=== PATIENT | female | born 1985 ===

== ENCOUNTER 2016-10-06 12:44 | Emergency (ER) | payer MEDICAID ==
[2016-10-06 12:44] VITALS: BMI 30.4
[2016-10-06 14:07] LABS: BASO # 0.1 K/uL (0.0-0.2); BASO % 0.7 % (0.0-2.0); EOS # 0.2 K/uL (0.0-0.7); EOS % 1.7 % (0.0-4.0); LYMPH # 3.8 K/uL (1.0-4.3); LYMPH % 30.8 % (20.0-40.0); MEAN CORPUSCULAR HGB CONC 33.3 g/dL (33.0-37.0); MEAN PLATELET VOLUME 8.6 fl (7.2-11.7); MONO % 7.8 % (0.0-10.0); NEUT # 7.3 K/uL (1.8-7.0); RED CELL DISTRIBUTION WIDTH 15.3 % (11.5-14.5); WHITE BLOOD COUNT 12.4 K/uL (4.8-10.8)
--- NOTE | 2016-10-06 14:08 | ED PDOC ---
HPI: Abdomen Time Seen by Provider: 10/06/16 12:57 Chief Complaint (Nursing): Abdominal Pain Chief Complaint (Provider): Abdominal Pain History Per: Patient History/Exam Limitations: no limitations Onset/Duration Of Symptoms: Days (x3) Additional Complaint(s): Ruthie Oscar is a 31 year old female who presents to the emergency department with a complaint of sharp, lower abdominal pain ongoing for 3 days which has become progressively worse, worse with movement. Denied any fever, chills, nausea, vomiting, constipation, diarrhea, vaginal bleeding, dysuria, hematuria, or taking pain medication for relief. PMD: none provided Abnormal Vaginal Bleeding: No Past Medical History Reviewed: Historical Data, Nursing Documentation, Vital Signs Vital Signs: Last Vital Signs Temp 98.4 F 10/06/16 16:29 Pulse 82 10/06/16 16:29 Resp 20 10/06/16 16:29 BP 120/70 10/06/16 16:29 Pulse Ox 98 10/06/16 16:29 - Medical History PMH: Migraine - Surgical History Surgical History: (x3) - Family History Family History: States: Unknown Family Hx - Social History Current smoker - smoking cessation education provided: No Alcohol: None Drugs: Denies - Immunization History Hx Tetanus Toxoid Vaccination: Yes Hx Influenza Vaccination: Yes Hx Pneumococcal Vaccination: Yes - Home Medications Home Medications: Ambulatory Orders Medication Instructions Recorded Meclizine [Antivert] 25 mg PO Q6 #30 tab 08/25/15 Naproxen [Naprosyn] 500 mg PO BID PRN #15 tablet 10/06/16 - Allergies Allergies/Adverse Reactions: Allergies Allergy/AdvReac Type Severity Reaction Status Date / Time No Known Allergies Allergy Verified 08/25/15 19:00 Review of Systems ROS Statement: Except As Marked, All Systems Reviewed And Found Negative Constitutional: Negative for: Fever, Chills Gastrointestinal: Positive for: Abdominal Pain (lower region; sharp and progressively getting worse). Negative for: Nausea, Vomiting, Diarrhea, Constipation Genitourinary Female: Negative for: Dysuria, Hematuria, Vaginal Bleeding Physical Exam - Reviewed Nursing Documentation Reviewed: Yes Vital Signs Reviewed: Yes - Physical Exam Appears: Positive for: Well, Non-toxic, No Acute Distress Head Exam: Positive for: ATRAUMATIC, NORMAL INSPECTION, NORMOCEPHALIC Cardiovascular/Chest: Positive for: Regular Rate, Rhythm Respiratory: Positive for: Normal Breath Sounds. Negative for: Respiratory Distress Gastrointestinal/Abdominal: Positive for: Bowel Sounds, Soft, Tenderness (left suprapubic). Negative for: Normal Exam, Guarding, Rebound Extremity: Positive for: Normal ROM Neurologic/Psych: Positive for: Alert, application trainer II-XII, Oriented - Laboratory Results Result Diagrams: 10/06/16 14:03 10/06/16 14:03 - ECG O2 Sat by Pulse Oximetry: 99 (RA) Pulse Ox Interpretation: Normal Medical Decision Making Medical Decision Making: Initial Impression: Abdominal pain Initial Plan: * Labs * Urine dipstick * Urine * Morphine 2mg * Urinalysis * US pelvis Time: 1545 --US ABD FINDINGS: UTERUS: Uterus is anteverted measuring approximately 10.6 x 4.0 x 4.7 cm. . No obvious myometrial masses or collections. . ENDOMETRIUM: Endometrial stripe measures approximately 9 mm in diameter. . CERVIX: Few small cervical nabothian cyst present RIGHT OVARY: Measures approximately 2.3 x 1.7 x 1.9 cm. No solid mass. Normal flow. LEFT OVARY: Measures approximately 4.1 x 2 point by 4.4 cm. No solid mass. Normal flow. FREE FLUID: No significant free fluid noted. OTHER FINDINGS: None. IMPRESSION: Unremarkable transabdominal pelvic ultrasound as above. ~ Scribe Attestation: Documented by Leonila Ballard, acting as a scribe for Jasmin Vicente MD. Provider Scribe Attestation: All medical record entries made by the Scribe were at my direction and personally dictated by me. I have reviewed the chart and agree that the record accurately reflects my personal performance of the history, physical exam, medical decision making, and the department course for this patient. I have also personally directed, reviewed, and agree with the discharge instructions and disposition. Disposition - Clinical Impression Clinical Impression: Left groin pain - Disposition Referrals: [facility] [place] [Outside] [facility] [place] [Outside] Disposition: Routine/Home Disposition Time: 16:09 Condition: STABLE Prescriptions: Naproxen [Naprosyn] 500 mg PO BID PRN #15 tablet PRN Reason: Pain, Moderate (4-7) Instructions: Groin Pain (ED) Forms: [employer] ([place]) Print Language: CAMBODIAN
[2016-10-06] MEDS ORDERED: Sodium Chloride 0.9% 1,000 ML IV STA (14:12)
[2016-10-06 14:17] LABS: ALB/GLOB RATIO 1.3 (1.0-2.1); ALKALINE PHOSPHATASE 90 U/L (38-126); ALT/SGPT 32 U/L (9-52); AST/SGOT 20 U/L (14-36); BILIRUBIN,TOTAL 0.5 mg/dl (0.2-1.3); BLOOD UREA NITROGEN 9 mg/dl (7-17); CALCIUM 9.5 mg/dL (8.4-10.2); CARBON DIOXIDE 25 mmol/L (22-30); CHLORIDE 104 mmol/L (98-107); GFR AFRICAN-AMERICAN > 60; GLUCOSE,RANDOM 93 mg/dL (65-105); POTASSIUM 4.4 MMOL/L (3.6-5.0); SODIUM 138 mmol/l (132-148); TOTAL PROTEIN 7.9 G/DL (6.3-8.2)
[2016-10-06 14:23] LABS: RBC URINE 28 /hpf (0-3); URINE BACTERIA RARE (<OCC); URINE BILIRUBIN NEGATIVE (NEGATIVE); URINE BLOOD SMALL (NEGATIVE); URINE CALCIUM OXALATE CRYSTALS OCC /hpf (<OCC); URINE COLOR YELLOW (YELLOW); URINE GLUCOSE (UA) NEG (Normal); URINE KETONE NEGATIVE (NEGATIVE); URINE LEUKOCYTE ESTERASE NEG Leu/uL (Negative); URINE PROTEIN 30 mg/dL (NEGATIVE); URINE UROBILINOGEN 0.2-1.0 mg/dL (0.2-1.0); WBC URINE 2 /hpf (0-5)
--- NOTE | 2016-10-06 15:47 | US ---
HISTORY: Left-sided suprapubic pain. COMPARISON: None available. TECHNIQUE: Limited transabdominal sonographic evaluation of pelvis performed FINDINGS: UTERUS: Uterus is anteverted measuring approximately 10.6 x 4.0 x 4.7 cm. . No obvious myometrial masses or collections. . ENDOMETRIUM: Endometrial stripe measures approximately 9 mm in diameter. . CERVIX: Few small cervical nabothian cyst present RIGHT OVARY: Measures approximately 2.3 x 1.7 x 1.9 cm. No solid mass. Normal flow. LEFT OVARY: Measures approximately 4.1 x 2 point by 4.4 cm. No solid mass. Normal flow. FREE FLUID: No significant free fluid noted. OTHER FINDINGS: None. IMPRESSION: Unremarkable transabdominal pelvic ultrasound as above.
[2016-10-06 16:31] VITALS: BP 120/70; PULSE 82; RESP 20; TEMP 98.4
[2016-10-06 18:51] VITALS: O2SAT 99
== END 2016-10-06 16:31 | disposition home or self-care (01) ==
LOC: H.ER 12:44
DX: R10.30 Lower abdominal pain, unspecified (principal)
CPT/HCPCS: 76856; 80053; 81003; 85025; 96360; 99283; J2270; J7040

== ENCOUNTER 2016-12-05 14:51 | Emergency (ER) | payer MEDICAID, OTHER ==
[2016-12-05 14:51] VITALS: BMI 30.4
[2016-12-05 15:00] VITALS: BP 147/77; PULSE 89; RESP 16; TEMP 97.3; O2SAT 99
--- NOTE | 2016-12-05 15:37 | ED PDOC ---
HPI: General Adult Time Seen by Provider: 12/05/16 15:05 Chief Complaint (Nursing): Dizziness/Lightheaded Chief Complaint (Provider): Dizziness/Lightheaded History Per: Patient History/Exam Limitations: no limitations Onset/Duration Of Symptoms: Days (x5 days) Current Symptoms Are (Timing): Still Present Additional Complaint(s): 31 y/o female presents to the emergency department with dizziness and lightheadedness, feeling like she was going to pass out or fall down x5 days that worsened over the last 2 days. Associated with a mild headache, nausea, excessive thirst, and frequency in urination. Reports she used a persons glucose meter that showed 205. Denies history of diabetes, excessive hunger, and vomiting. Also reporting intermittent LEFT hand parasthesias and pain radiating near thumb -side of wrist down to fingers and up towards forearm. Also for about a week, but had in the past in milder intensity. Using soft wrist wrap for support with minimal relief. PMD: Dr. Bethany Aguilar Past Medical History Reviewed: Historical Data, Nursing Documentation, Vital Signs Vital Signs: Last Vital Signs Temp 97.3 F L 12/05/16 14:56 Pulse 89 12/05/16 14:56 Resp 16 12/05/16 14:56 BP 147/77 12/05/16 14:56 Pulse Ox 99 12/05/16 15:46 - Medical History PMH: Migraine - Surgical History Surgical History: (x3) - Family History Family History: States: Unknown Family Hx - Social History Current smoker - smoking cessation education provided: Yes Alcohol: None Drugs: Cannabis - Immunization History Hx Tetanus Toxoid Vaccination: Yes Hx Influenza Vaccination: Yes Hx Pneumococcal Vaccination: Yes - Home Medications Home Medications: Ambulatory Orders Medication Instructions Recorded Meclizine [Antivert] 25 mg PO Q6 #30 tab 08/25/15 Naproxen [Naprosyn] 500 mg PO BID PRN #15 tablet 10/06/16 Naproxen [Naprosyn] 1 tab PO BID PRN #30 tab 12/05/16 Non-Formulary 1 ea .ROUTE PRN #1 ea 12/05/16 - Allergies Allergies/Adverse Reactions: Allergies Allergy/AdvReac Type Severity Reaction Status Date / Time No Known Allergies Allergy Verified 08/25/15 19:00 Review of Systems ROS Statement: Except As Marked, All Systems Reviewed And Found Negative (As per HPI otherwise negative) Constitutional: Positive for: Other (Excessive thirst, but no excessive hunger) ENT: Positive for: Other Gastrointestinal: Positive for: Nausea. Negative for: Vomiting Genitourinary Female: Positive for: Frequency Neurological: Positive for: Headache (Mild), Dizziness, Other (Lightheadedness) Physical Exam - Reviewed Nursing Documentation Reviewed: Yes Vital Signs Reviewed: Yes - Physical Exam Appears: Positive for: Well, No Acute Distress Head Exam: Positive for: ATRAUMATIC, NORMOCEPHALIC Skin: Positive for: Warm, Dry Eye Exam: Positive for: EOMI, PERRL ENT: Negative for: Pharyngeal Erythema, Tonsillar Exudate Neck: Positive for: Painless ROM, Supple Cardiovascular/Chest: Positive for: Regular Rate, Rhythm, Chest Non Tender. Negative for: Murmur Respiratory: Positive for: Normal Breath Sounds. Negative for: Wheezing Gastrointestinal/Abdominal: Positive for: Soft. Negative for: Tenderness Back: Positive for: Normal Inspection. Negative for: Decreased ROM Extremity: Positive for: Tenderness (LEFT radial wrist with tenderness, +pain illicited within snuff box area with ulnar deviation, no deformity or edema, FROM LEFT hand, light touch intact, 2+ radial pulse < 2sec CR). Negative for: Deformity Lymphatic: Negative for: Adenopathy Neurologic/Psych: Positive for: Alert. Negative for: Motor/Sensory Deficits - Laboratory Results Result Diagrams: 12/05/16 15:40 12/05/16 15:40 - ECG O2 Sat by Pulse Oximetry: 99 (RA) Pulse Ox Interpretation: Normal Medical Decision Making Medical Decision Making: Time: 151 Initial Impression: Lightheadedness. Differential include dehydration, diabetes , viral illness, and electrolyte abnormalities. Also with wrist tendonitis Initial Plan: --EKG --Labs --Urine DIP & Preg --IV insertion --Reevaluation Labs unremarkable. Scribe Attestation: Documented by Agueda Guzmán, acting as a scribe for Jacquie Dobbins MD. Provider Scribe Attestation: All medical record entries made by the Scribe were at my direction and personally dictated by me. I have reviewed the chart and agree that the record accurately reflects my personal performance of the history, physical exam, medical decision making, and the department course for this patient. I have also personally directed, reviewed, and agree with the discharge instructions and disposition. Disposition - Clinical Impression Clinical Impression: De Quervain's tenosynovitis, left, Dizzy spells - Disposition Referrals: Bethany Aguilar MD [Family Provider] - 12/07/16 Disposition: Routine/Home Disposition Time: 17:00 Condition: GOOD Additional Instructions: PLEASE FOLLOW UP WITH DR BRIONES WEDNESDAY FOR FURTHER EVALUATION AND REFERRAL TO PHYSICAL THERAPY FOR YOUR WRIST Prescriptions: Naproxen [Naprosyn] 1 tab PO BID PRN #30 tab PRN Reason: Pain Non-Formulary 1 ea .ROUTE PRN #1 ea Instructions: De Quervain Disease (ED), Lightheadedness (ED) Forms: [facility] ED School/Work Excuse
[2016-12-05 15:43] LABS: BASO # 0.1 K/uL (0.0-0.2); EOS # 0.3 K/uL (0.0-0.7); EOS % 3.4 % (0.0-4.0); HEMATOCRIT 37.2 % (34.0-47.0); LYMPH # 3.6 K/uL (1.0-4.3); LYMPH % 36.5 % (20.0-40.0); MEAN CELL VOLUME 86.7 fl (81.0-99.0); MEAN CORPUSCULAR HEMOGLOBIN 28.4 pg (27.0-31.0); MEAN CORPUSCULAR HGB CONC 32.8 g/dL (33.0-37.0); MEAN PLATELET VOLUME 8.4 fl (7.2-11.7); MONO # 0.9 K/uL (0.0-0.8); MONO % 8.7 % (0.0-10.0); NEUT % 50.4 % (50.0-75.0); NRBC % 0.1 % (0.0-0.0); RED CELL DISTRIBUTION WIDTH 14.7 % (11.5-14.5); WHITE BLOOD COUNT 9.8 K/uL (4.8-10.8)
[2016-12-05 15:55] LABS: ALB/GLOB RATIO 1.2 (1.0-2.1); ALKALINE PHOSPHATASE 78 U/L (38-126); ALT/SGPT 33 U/L (9-52); AST/SGOT 21 U/L (14-36); BILIRUBIN,TOTAL 0.2 mg/dl (0.2-1.3); BLOOD UREA NITROGEN 10 mg/dl (7-17); CALCIUM 8.7 mg/dL (8.4-10.2); CARBON DIOXIDE 24 mmol/L (22-30); CHLORIDE 107 mmol/L (98-107); GFR AFRICAN-AMERICAN > 60; GLUCOSE,RANDOM 103 mg/dL (65-105); LIPASE 91 U/L (23-300); MAGNESIUM 1.8 MG/DL (1.6-2.3); PHOSPHOROUS 4.3 mg/dl (2.5-4.5); POTASSIUM 3.9 MMOL/L (3.6-5.0); SODIUM 143 mmol/l (132-148); TOTAL PROTEIN 7.7 G/DL (6.3-8.2)
[2016-12-05 16:24] LABS: THYROID STIMULATING HORMONE 1.27 mIU/ML (0.46-4.68)
[2016-12-05] MEDS ORDERED: Sodium Chloride 0.9% 500 ML IV STA (16:47)
--- NOTE | 2016-12-07 10:52 | CARD ---
APPROVED REPORT EKG Measurement Heart [id number] <Conclusion> Normal sinus rhythm Minimal voltage criteria for LVH, may be normal variant Borderline ECG
== END 2016-12-05 18:09 | disposition home or self-care (01) ==
LOC: H.ER 14:51
DX: M65.4 Radial styloid tenosynovitis [de Quervain] (principal); F17.200 Nicotine dependence, unspecified, uncomplicated; R42 Dizziness and giddiness
CPT/HCPCS: 80053; 81025; 82948; 83036; 83690; 83735; 84100; 84443; 85025; 93005; 99285; J7040

== ENCOUNTER 2017-05-25 20:42 | Emergency (ER) | payer MEDICAID, SELFPAY ==
[2017-05-25 20:42] VITALS: BMI 30.4
[2017-05-25 20:51] VITALS: BP 130/82; PULSE 100; RESP 16; TEMP 98.6; O2SAT 100
--- NOTE | 2017-05-25 21:31 | ED PDOC ---
HPI: Allergic Reaction Time Seen by Provider: 05/25/17 20:52 Chief Complaint (Nursing): Abnormal Skin Integrity Chief Complaint (Provider): Allergic Reaction History Per: Patient History/Exam Limitations: no limitations Onset/Duration Of Symptoms: Days (x 2 ) Current Symptoms Are (Timing): Still Present Possible Cause: Unknown Associated Symptoms: Skin Rash Additional Complaint(s): 31 year old female presents to the ED complaining of hives, starting 2 days ago. Patient reports hives worsened today prior to arrival to the ED. Denies any new foods and states her only new product is for dry scalp. No medicines were taken prior to arrival. Denies shortness or breath, facial swelling, throat swelling, nausea, fever, vomiting, abdominal pain. Past Medical History Reviewed: Historical Data, Nursing Documentation, Vital Signs Vital Signs: Last Vital Signs Temp 98.6 F 05/25/17 20:49 Pulse 100 H 05/25/17 20:49 Resp 16 05/25/17 20:49 BP 130/82 05/25/17 20:49 Pulse Ox 100 05/25/17 20:49 - Medical History PMH: Migraine - Surgical History Surgical History: (x3) - Family History Family History: States: Unknown Family Hx - Social History Current smoker - smoking cessation education provided: Yes (6 cigarettes per day ) Alcohol: None Drugs: Other (Marijuana (3 times a week) ) - Home Medications Home Medications: Ambulatory Orders Medication Instructions Recorded Meclizine [Antivert] 25 mg PO Q6 #30 tab 08/25/15 Naproxen [Naprosyn] 500 mg PO BID PRN #15 tablet 10/06/16 Naproxen [Naprosyn] 1 tab PO BID PRN #30 tab 12/05/16 Non-Formulary 1 ea .ROUTE PRN #1 ea 12/05/16 DiphenhydrAMINE [Benadryl] 25 mg PO Q6 #20 cap 05/25/17 Famotidine [Pepcid] 40 mg PO DAILY #5 tablet 05/25/17 Prednisone [Deltasone] 40 mg PO DAILY #10 tablet 05/25/17 - Allergies Allergies/Adverse Reactions: Allergies Allergy/AdvReac Type Severity Reaction Status Date / Time No Known Allergies Allergy Verified 08/25/15 19:00 Review of Systems ROS Statement: Except As Marked, All Systems Reviewed And Found Negative Skin: Positive for: Rash (diffuse hives) Physical Exam - Reviewed Nursing Documentation Reviewed: Yes Vital Signs Reviewed: Yes - Physical Exam Comments: GENERAL APPEARANCE: Patient is awake, alert, oriented x 3, in no acute distress. Speaking in full sentences, respirations even and non-labored. SKIN: (+) scattered diffuse urticaria HENT: (-) conjunctival injection, (-) chemosis. Oropharynx: clear (-) tongue or lip swelling, (-) tonsillar exudates, (-) erythema. Airway: patent (-) stridor, (-) hoarseness. Mucous membranes moist. Nares: Patent (-) rhinorrhea. NECK: Supple, FROM (-) lymphadenopathy, (-) tenderness. CARDIOVASCULAR: Normal rate and rhythm. (-) murmur, (-) gallop. CHEST: (-) rales, (-) wheezing, (-) dyspnea, (-) stridor. Breath sounds equal bilaterally. ABDOMEN: Soft. (-) tenderness, (-) distention NEURO: Mental status as above, gait steady in ED. - ECG O2 Sat by Pulse Oximetry: 100 (RA) Pulse Ox Interpretation: Normal Disposition - Clinical Impression Clinical Impression: Allergic reaction, Urticaria - Patient ED Disposition Is Patient to be Admitted: No Counseled Patient/Family Regarding: Diagnosis, Need For Followup, Rx Given - Disposition Referrals: [facility] [Outside] Disposition: Routine/Home Disposition Time: 22:22 Condition: STABLE Prescriptions: DiphenhydrAMINE [Benadryl] 25 mg PO Q6 #20 cap Famotidine [Pepcid] 40 mg PO DAILY #5 tablet Prednisone [Deltasone] 40 mg PO DAILY #10 tablet Instructions: Hives, Hives (DC), Allergy Skin Testing Forms: [employer] (B[place]ladeshi) Print Language: THAI - POA Present On Arrival: None Medical Decision Making Medical Decision Making: Clinical Impression: Urticaria, Allergic Reaction Plan: -- Prednisone PO -- Benadryl PO -- Pepcid PO -- Re-evaluation Of note, patient reports she will not be driving home. 2225 On re-evaluation, patient reports improvement of symptoms, denies any facial swelling, SOB, or dyspnea. On exam, patient remains AAOx3, in no acute distress. On exam, neck is supple, lungs CTA, cardiac RRR, abdomen is soft and non-tender, neuro exam shows no focal findings. VSS. Repeat HR: 92. Repeat BP: 119/82. Repeat O2 92% RA. Diagnostic results d/w the patient in great detail. Dx of allergic reaction, urticaria d/w the patient. Based on history, exam and diagnostic results plan will be for discharge and outpatient follow up. Advised to follow up with primary care physician in 1-2 days without fail. Advised to take medication as prescribed. Return to the emergency room at any time for any new or worsening symptoms. Patient states she fully agrees with and understands discharge instructions. States that she agrees with the plan and disposition. Verbalized and repeated discharge instructions and plan. I have given the patient opportunity to ask any additional questions.
== END 2017-05-25 22:56 | disposition home or self-care (01) ==
LOC: H.ER 20:42
DX: L50.0 Allergic urticaria (principal)